=== PATIENT | male | born 1985 | race Caucasian/White ===

== ENCOUNTER 2017-12-24 04:17 | Emergency (ER) | payer MEDICAID ==
[2017-12-24] MEDS ORDERED: OLANZapine DISINTEGR 10 MG TAB PO ONE (04:44)
[2017-12-24 04:51] LABS: PLATELET COUNT 402 10^3/uL (150-400)
[2017-12-24] MEDS ORDERED: LORazepam 2 MG/ML INJ ONE (05:14)
[2017-12-24] MEDS ORDERED: LORazepam 2 MG/ML INJ IVP ONE (05:15)
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
[2017-12-24] MEDS ORDERED: IBUPROFEN 600 MG TAB PO ONE (08:14)
[2017-12-24] MEDS ORDERED: OLANZapine 5 MG TAB PO ONE (11:16)
[2017-12-24] MEDS ORDERED: LORazepam 1 MG TAB PO ONE (12:59)
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
[2017-12-24] MEDS: DIVALPROEX NA 250 MG TAB PO SCH (16:49)
[2017-12-24] MEDS ORDERED: diphenhydrAMINE 25 MG CAP PO ONE (20:12)
[2017-12-24] MEDS: OLANZapine DISINTEGR 10 MG TAB PO SCH (20:26)
[2017-12-25] MEDS ORDERED: diphenhydrAMINE 25 MG CAP PO ONE ×2 (05:51→14:20)
[2017-12-25] MEDS ORDERED: ACETAMINOPHEN 500 MG TAB PO ONE (05:53)
[2017-12-25] MEDS ORDERED: LORazepam 1 MG TAB PO ONE ×2 (05:54→12:48)
[2017-12-25] MEDS: OLANZapine DISINTEGR 10 MG TAB PO SCH (08:23)
[2017-12-25] MEDS: DIVALPROEX NA 250 MG TAB PO SCH (08:24)
[2017-12-25 14:29] VITALS: BP 129/76
== END 2017-12-25 14:27 ==
DX: F31.9 Bipolar disorder, unspecified (principal); F17.200 Nicotine dependence, unspecified, uncomplicated
CPT/HCPCS: 80305; 96374; G0480; J2060

== ENCOUNTER 2018-01-05 10:38 | Emergency (ER) | payer MEDICAID ==
[2018-01-05] MEDS ORDERED: LORazepam 1 MG TAB PO ONE (11:22)
[2018-01-05] MEDS ORDERED: IBUPROFEN 600 MG TAB PO ONE (11:23)
[2018-01-05 11:29] LABS: PLATELET COUNT 439 10^3/uL (150-400)
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
[2018-01-05 15:49] VITALS: BP 132/79
== END 2018-01-05 17:53 | disposition home or self-care (01) ==
DX: F41.9 Anxiety disorder, unspecified (principal); Z87.891 Personal history of nicotine dependence
CPT/HCPCS: 80305